=== PATIENT | female | born 1990 | race Caucasian/White ===

== ENCOUNTER 2016-12-31 05:25 | Inpatient (IN) | payer OTHER ==
[~2016-12-31] VITALS: Ht 167.6 cm; Wt 87.1 kg
[2016-12-31] VITALS (90 sets, daily range): BP systolic 87–120; BP diastolic 48–88; PULSE 71–190; RESP 17–20; TEMP 98–98.8
[2016-12-31] MEDS: LACTATED RINGER'S 1000 ML INJ 1,000 ML IV SCH ×2 (06:15→14:23)
[2016-12-31 07:44] LABS: AUTOMATED NEUTROPHIL # 8.4 TH/MM3 (1.8-7.7); BASOPHIL % 0.3 % (0.0-2.0); EOSINOPHIL % 0.5 % (0.0-4.0); HEMATOCRIT 36.3 % (35.0-46.0); HEMO FLAGS DIFF FINAL; LYMPH % 12.2 % (9.0-44.0); LYMPHOCYTE # 1.3 TH/MM3 (1.0-4.8); MEAN CELL VOLUME 81.8 FL (80.0-100.0); MEAN CORPUSCULAR HEMOGLOBIN 28.1 PG (27.0-34.0); MEAN CORPUSCULAR HGB CONC 34.4 % (32.0-36.0); MONO % 7.1 % (0.0-8.0); NEUT % 79.9 % (16.0-70.0); PLATELET COUNT 185 TH/MM3 (150-450); RED BLOOD COUNT 4.44 MIL/MM3 (4.00-5.30); RED CELL DISTRIBUTION WIDTH 14.4 % (11.6-17.2); WHITE BLOOD COUNT 10.5 TH/MM3 (4.0-11.0)
[2016-12-31] MEDS ORDERED: LACTATED RINGER'S 1000 ML INJ 1,000 ML IV PRN (07:50)
[2016-12-31] MEDS ORDERED: LIDOCAINE HCL 1% 50 ML VIAL INFIL PRN (08:00)
[2016-12-31] MEDS ORDERED: OXYTOCIN 30 UNITS-500ML PREMIX 500 ML IV ONE (08:00)
[2016-12-31] MEDS ORDERED: CITRIC ACID-SODIUM CITRATE LIQ 30 ML UDC PO SCH (08:00)
[2016-12-31] MEDS ORDERED: LIDOCAINE HCL 1% 50 ML VIAL I-DERMAL PRN (08:00)
[2016-12-31] MEDS ORDERED: SODIUM CHLORID 0.9% 500 ML INJ 500 ML IV PRN (08:00)
[2016-12-31] MEDS ORDERED: MINERAL OIL 10 ML VIAL TOPICAL PRN (08:00)
[2016-12-31] MEDS ORDERED: SODIUM CHLOR 0.9% 1000 ML INJ 1,000 ML IV PRN (08:10)
--- NOTE | 2016-12-31 08:10 | PD ---
HPI Chief Complaint rom at 0245 Date Seen: Dec 31, 2016 Time Seen: 06:00 Travel History International Travel<30 Days: No Contact w/Intl Traveler<30Days: No Known Affected Area: No History of Present Illness HPI 26yo G at [id number], with rom at 0245. Some contractions. Good movement , no discharge or bleeding Para: 0 : 1 History Past Medical History Medical History: Denies Significant Hx Past Surgical History Surgical History: No Previous Surgery Family History Family History: Negative Social History Alcohol Use: No Tobacco Use: No Substance Abuse: No Allergies-Medications (Allergen,Severity, Reaction): Coded Allergies: No Known Allergies (Unverified , 12/31/16) Review of Systems Except as stated in HPI: all other systems reviewed are Neg Physical Exam Narrative GENERAL: Well-nourished, well-developed patient. SKIN: Warm and dry. HEAD: Normocephalic and atraumatic. EYES: No scleral icterus. No injection or drainage. ENT: No nasal drainage noted. Mucous membranes pink. Airway patent. NECK: Supple, trachea midline. No JVD. CARDIOVASCULAR: Regular rate and rhythm without murmurs, gallops, or rubs. RESPIRATORY: Breath sounds equal bilaterally. No accessory muscle use. BREASTS: Bilateral exam showed no masses , no retractions, no nipple discharge. ABDOMEN/GI: Abdomen soft, non-tender, bowel sounds present, no rebound, no guarding Gravid to [-] weeks size Fundal Height: [40-] GENITOURINARY: Exam per nurse External Genitalia: intact and normal in appearance BUS glands: [-nl] Cervix: [1-] Dilatation: [1] Effacement: [-50] Station: [-2] Presentation: [-vertex] Membranes: [ruptured, thin meconium] Uterine Contractions: [-] FHT's: Category: [-1] Baseline: [140-] Reactive: [mod-] Variability: [mod-] Decels: [absent-] EXTREMITIES: No cyanosis or edema. BACK: Nontender without obvious deformity. No CVA tenderness. NEUROLOGICAL: Awake and alert. Motor and sensory grossly within normal limits. Five out of 5 muscle strength in all muscle groups. Normal speech. Data Data Orders Ob (2e) Additional Admit Info (12/31/16 06:32) Complete Blood Count With Diff (12/31/16 07:32) Hold Clot (12/31/16 07:32) Abo/Rh Blood Type (12/31/16 07:32) Urinalysis - C+S If Indicated (12/31/16 07:32) Specimen To Be Collected PRN (12/31/16 07:32) Admit To Inpatient (12/31/16 ) Vital Signs (Adult) .Per protocol (12/31/16 07:50) Heart (12/31/16 07:50) Amnioinfusion (12/31/16 07:50) Urinary Catheter Management .ONCE (12/31/16 07:50) Lactated Ringer's 1000 Ml Inj (Lr 1000 M (12/31/16 07:50) Lactated Ringer's 1000 Ml Inj (Lr 1000 M (12/31/16 07:50) Sodium Chlorid 0.9% 500 Ml Inj (Ns 500 M (12/31/16 08:00) Sodium Chlor 0.9% 1000 Ml Inj (Ns 1000 M (12/31/16 08:10) Lidocaine 1% Inj (50 Ml) (Xylocaine 1% I (12/31/16 08:00) Citric Acid-Sodium Citrate Liq (Bicitra (12/31/16 08:00) Fentanyl Inj (Fentanyl Inj) (12/31/16 08:00) Fentanyl Inj (Fentanyl Inj) (12/31/16 08:00) Resp Oxygen Non Rebreathe Mask (12/31/16 ) ^ Epidural / Intrathecal Infus (12/31/16 07:50) Oxytocin 30 Units-500ml Premix (Pitocin (12/31/16 08:00) Lidocaine 1% Inj (50 Ml) (Xylocaine 1% I (12/31/16 08:00) Light Mineral Oil (Muri-Lube Oil) (12/31/16 08:00) Inpatient Certification (12/31/16 ) Labs Laboratory Tests Test 12/31/16 06:19 White Blood Count 10.5 Red Blood Count 4.44 Hemoglobin 12.5 Hematocrit 36.3 Mean Corpuscular Volume 81.8 Mean Corpuscular Hemoglobin 28.1 Mean Corpuscular Hemoglobin 34.4 Concent Red Cell Distribution Width 14.4 Platelet Count 185 Mean Platelet Volume 9.1 Neutrophils (%) (Auto) 79.9 Lymphocytes (%) (Auto) 12.2 Monocytes (%) (Auto) 7.1 Eosinophils (%) (Auto) 0.5 Basophils (%) (Auto) 0.3 Neutrophils # (Auto) 8.4 Lymphocytes # (Auto) 1.3 Monocytes # (Auto) 0.7 Eosinophils # (Auto) 0.0 Basophils # (Auto) 0.0 CBC Comment DIFF FINAL Differential Comment MDM Plan 39-40 weeks gestation with spontaneous rupture of membranes GBS negative thin meconium Admit for labor Diagnosis Diagnosis: Primary Impression: Rupture of amniotic sac under 24 hours before onset of labor Additional Impressions: Meconium staining 39 weeks gestation of Eleanor Lyman MD Dec 31, 2016 08:10
[2016-12-31 08:29] LABS: BACTERIA, URINE FEW /hpf; BLOOD, URINE SMALL (NEG); COMMENT (UR) CULT NOT INDICATED; CULTURE IF INDICATED CULT NOT INDICATED; GLUCOSE,URINE NEG (NEG); KETONE, URINE NEG (NEG); MUCUS URINE FEW /lpf (OCC); NITRITE,URINE NEG (NEG); PH, URINE 6.5 (5.0-8.5); SQUAMOUS EPITHELIAL CELL URINE 7 /hpf (0-5); URINE COLOR YELLOW (YELLW/STRAW)
[2016-12-31] MEDS ORDERED: ONDANSETRON HCL 4 MG/2 ML VIAL IV PUSH PRN (08:45)
[2016-12-31] MEDS ORDERED: OXYTOCIN 30 UNITS-500ML PREMIX 500 ML IV SCH (12:30)
--- NOTE | 2016-12-31 12:30 | PD.LABORPN ---
Subjective Subjective Pt reports ctxs are getting stronger Objective Vital Signs Vital Signs Date Time Temp Pulse Resp B/P Pulse Ox O2 Delivery O2 Flow Rate FiO2 12/31/16 12:01 89 110/68 12/31/16 11:15 98.0 12/31/16 11:15 18 12/31/16 11:00 76 104/66 12/31/16 10:00 91 100/66 12/31/16 09:00 82 107/68 12/31/16 08:56 98.1 18 12/31/16 08:56 92 109/69 12/31/16 08:02 12/31/16 08:02 83 111/72 12/31/16 08:00 97 12/31/16 08:00 111/72 12/31/16 08:00 17 Objective Pelvic Exam: Cervix: ] Dilatation: 4 Effacement: 70 Station: -2 Presentation: v Membranes: srom and arom of small forebag Uterine Contractions: q 3-5 min FHT's: Category: [-] Baseline: 140 Reactive: reactive Variability: [-] Decels: [-] Assessment/Plan Assessment and Plan 26 yo wf G1 at 39+ wks in labor with SROM and cervical progression 1. will start some augmentation 2. pain management with epidural prn 3. expectant mngmt Angela Berger MD Dec 31, 2016 12:30
[2016-12-31] MEDS ORDERED: fentaNYL 2MCG-BUPIV 0.125% INJ 100 ML ONE (15:53)
[2016-12-31] MEDS ORDERED: BUPIVACAINE HCL PF 0.25% 10 ML VIAL ONE (15:55)
[2016-12-31] MEDS ORDERED: ePHEDrine/NS 25 MG/5 ML SYR ONE (15:56)
[2016-12-31] MEDS ORDERED: DO NOT ADMINISTER ANTICOAGULANTS PRN (17:30)
[2016-12-31] MEDS ORDERED: ePHEDrine/NS 25 MG/5 ML SYR IV PRN (17:30)
[2016-12-31] MEDS ORDERED: NO SYSTEM NARCOTICS PRN (17:30)
[2016-12-31] MEDS ORDERED: fentaNYL 2MCG-BUPIV 0.125% 100 ML EPIDURAL SCH (17:30)
--- NOTE | 2016-12-31 21:56 | PD.LABORPN ---
Subjective Subjective pt c/o pelvic pressure Objective Vital Signs Vital Signs Date Time Temp Pulse Resp B/P Pulse Ox O2 Delivery O2 Flow Rate FiO2 12/31/16 21:42 98.5 12/31/16 21:30 113/70 12/31/16 21:15 20 12/31/16 21:15 91 117/57 12/31/16 21:00 81 116/67 12/31/16 20:45 18 12/31/16 20:45 92 116/64 12/31/16 20:30 87 12/31/16 20:30 111/72 12/31/16 20:15 88 114/60 12/31/16 20:01 18 12/31/16 20:00 78 112/66 12/31/16 19:45 75 105/58 12/31/16 19:30 98.8 12/31/16 19:30 88 99/66 12/31/16 19:15 18 12/31/16 19:15 88 109/66 12/31/16 19:05 85 12/31/16 19:04 104/55 12/31/16 18:55 85 12/31/16 18:50 89 12/31/16 18:45 85 12/31/16 18:45 82 90/57 12/31/16 18:40 98 12/31/16 18:35 95 12/31/16 18:30 83 96/52 12/31/16 18:30 81 12/31/16 18:20 113 12/31/16 18:16 117 99/52 12/31/16 18:15 83 12/31/16 18:14 82 95/50 12/31/16 18:11 77 91/49 12/31/16 18:10 78 12/31/16 18:10 79 12/31/16 18:07 79 95/55 12/31/16 18:01 81 87/67 12/31/16 18:00 74 12/31/16 17:55 91 12/31/16 17:50 78 12/31/16 17:45 75 12/31/16 17:45 99 113/59 12/31/16 17:40 92 12/31/16 17:35 71 12/31/16 17:31 82 109/65 12/31/16 17:30 77 12/31/16 17:25 78 12/31/16 17:20 83 12/31/16 17:15 76 109/71 12/31/16 17:15 77 12/31/16 17:10 86 12/31/16 17:05 95 12/31/16 17:00 151 12/31/16 17:00 87 105/50 12/31/16 16:55 78 12/31/16 16:50 84 12/31/16 16:46 79 106/60 12/31/16 16:45 90 99/68 12/31/16 16:45 99 12/31/16 16:42 110 104/85 12/31/16 16:40 94 12/31/16 16:40 119 109/55 12/31/16 16:36 108 111/68 12/31/16 16:35 81 12/31/16 16:33 81 116/55 12/31/16 16:30 96 108/55 12/31/16 16:30 113 12/31/16 16:28 108 89/61 12/31/16 16:25 102 12/31/16 16:24 111 118/54 12/31/16 16:21 96 120/66 12/31/16 16:20 101 12/31/16 16:18 89 114/68 12/31/16 16:16 190 111/87 12/31/16 16:15 97 12/31/16 16:13 90 117/72 12/31/16 16:10 94 12/31/16 16:05 108 12/31/16 16:00 91 12/31/16 16:00 92 117/77 12/31/16 15:30 95 100/69 12/31/16 15:01 90 116/77 12/31/16 14:30 91 117/80 12/31/16 14:12 98.2 12/31/16 14:00 82 104/60 Objective Pelvic Exam: Cervix: [-] Dilatation: [7] Effacement: [90] Station: [-1-2] Presentation: [vtx] Membranes: [ruptured] Uterine Contractions: [q2-3] FHT's: Category: [1-2] Baseline: [140s] Reactive: [+] Variability: [-] Decels: [some variables] Assessment/Plan Problem List: (1) 39 weeks gestation of Plan: cont pit, amnioinfusion Delia Goode MD Dec 31, 2016 21:56
[2017-01-01] VITALS (11 sets, daily range): BP systolic 89–112; BP diastolic 50–84; PULSE 84–106; RESP 16–20; TEMP 98–98.9
--- NOTE | 2017-01-01 00:47 | PD.OB.DELI ---
Delivery Date: Dec 31, 2016 Anesthesia: Epidural, Lidocaine local to perineum Episiotomy: None Vaginal Delivery: Normal Presentation: Occiput anterior Nuchal Cord: None Delayed cord clamping (45 sec): No : Male, Single One Minute : 4 Five Minute : 8 Weight: 7-5 Placenta: Spontaneous delivery, Intact, 3 vessel cord Laceration: Perineal laceration, 2 deg (repaired with 2-0 chromic suture in a running fashion) Additional Information right periurethral laceration repaired with 3-0 chromic in a running fashion Delia Goode MD Jan 01, 2017 00:47
[2017-01-01] MEDS ORDERED: oxyCODONE/ACETAMINOPHEN 5 MG/325 MG TAB PO PRN (01:00)
[2017-01-01] MEDS ORDERED: ALUMINUM/MAGNESIUM/SIMETH 30 ML CUP PO PRN (01:00)
[2017-01-01] MEDS ORDERED: ACETAMINOPHEN 325 MG TAB PO PRN (01:00)
[2017-01-01] MEDS ORDERED: OXYTOCIN 10 UNIT/ML AMP XX PRN (01:00)
[2017-01-01] MEDS ORDERED: WITCH HAZEL 50%/GLYCERIN 12.5% 40 PAD JAR TOPICAL PRN (01:00)
[2017-01-01] MEDS ORDERED: SODIUM CHLORIDE 0.9% FLUSH 10 ML FLUSH IV FLUSH PRN (01:00)
[2017-01-01] MEDS ORDERED: ONDANSETRON ODT 4 MG TAB PO PRN (01:00)
[2017-01-01] MEDS ORDERED: BENZOCAINE 20% TOPICAL SPRAY 60 ML CAN TOPICAL PRN (01:00)
[2017-01-01] MEDS ORDERED: OXYTOCIN 30 UNITS-500ML PREMIX 500 ML IV ONE (01:00)
[2017-01-01] MEDS ORDERED: ZOLPIDEM TARTRATE 5 MG TAB PO PRN (01:00)
[2017-01-01] MEDS ORDERED: DOCUSATE SODIUM 50 MG/SENNA 8.6 MG TAB PO PRN (01:00)
[2017-01-01] MEDS: IBUPROFEN 600 MG TAB PO PRN ×3 (02:43→18:11)
[2017-01-01] MEDS ORDERED: SODIUM CHLORIDE 0.9% FLUSH 10 ML FLUSH IV FLUSH SCH (09:00)
--- NOTE | 2017-01-01 11:19 | HHI.OB ---
Subjective Post Day: 1 Remarks pain controlled, mod lochia, donald po, +void/flatus Objective Vitals/I&O Vital Signs Date Time Temp Pulse Resp B/P Pulse Ox O2 Delivery O2 Flow Rate FiO2 01/01/17 09:00 98.0 01/01/17 09:00 86 16 97/62 01/01/17 02:30 98.3 87 20 01/01/17 02:30 108/61 01/01/17 01:31 92 01/01/17 01:31 94/50 01/01/17 01:15 18 01/01/17 01:15 91 01/01/17 01:15 107/63 01/01/17 01:00 92/71 01/01/17 01:00 18 01/01/17 01:00 95 01/01/17 00:45 98.9 01/01/17 00:45 106 20 107/84 01/01/17 00:30 96 01/01/17 00:30 104/61 01/01/17 00:15 106 01/01/17 00:15 103/55 01/01/17 00:05 20 01/01/17 00:00 101 112/69 12/31/16 23:16 92/48 12/31/16 23:00 114 115/75 12/31/16 22:46 97 114/75 12/31/16 22:45 20 12/31/16 22:31 107/82 12/31/16 22:19 95 117/68 12/31/16 22:07 20 12/31/16 22:01 104/88 12/31/16 21:46 102 99/82 12/31/16 21:42 98.5 12/31/16 21:30 113/70 12/31/16 21:15 20 12/31/16 21:15 91 117/57 12/31/16 21:00 81 116/67 12/31/16 20:45 18 12/31/16 20:45 92 116/64 12/31/16 20:30 87 12/31/16 20:30 111/72 12/31/16 20:15 88 114/60 12/31/16 20:01 18 12/31/16 20:00 78 112/66 12/31/16 19:45 75 105/58 12/31/16 19:30 98.8 12/31/16 19:30 88 99/66 12/31/16 19:15 18 12/31/16 19:15 88 109/66 12/31/16 19:05 85 12/31/16 19:04 104/55 12/31/16 18:55 85 12/31/16 18:50 89 12/31/16 18:45 85 12/31/16 18:45 82 90/57 12/31/16 18:40 98 12/31/16 18:35 95 12/31/16 18:30 83 96/52 12/31/16 18:30 81 12/31/16 18:20 113 12/31/16 18:16 117 99/52 12/31/16 18:15 83 12/31/16 18:14 82 95/50 12/31/16 18:11 77 91/49 12/31/16 18:10 78 12/31/16 18:10 79 12/31/16 18:07 79 95/55 12/31/16 18:01 81 87/67 12/31/16 18:00 74 12/31/16 17:55 91 12/31/16 17:50 78 12/31/16 17:45 75 12/31/16 17:45 99 113/59 12/31/16 17:40 92 12/31/16 17:35 71 12/31/16 17:31 82 109/65 12/31/16 17:30 77 12/31/16 17:25 78 12/31/16 17:20 83 12/31/16 17:15 76 109/71 12/31/16 17:15 77 12/31/16 17:10 86 12/31/16 17:05 95 12/31/16 17:00 151 12/31/16 17:00 87 105/50 12/31/16 16:55 78 12/31/16 16:50 84 12/31/16 16:46 79 106/60 12/31/16 16:45 90 99/68 12/31/16 16:45 99 12/31/16 16:42 110 104/85 12/31/16 16:40 94 12/31/16 16:40 119 109/55 12/31/16 16:36 108 111/68 12/31/16 16:35 81 12/31/16 16:33 81 116/55 12/31/16 16:30 96 108/55 12/31/16 16:30 113 12/31/16 16:28 108 89/61 12/31/16 16:25 102 12/31/16 16:24 111 118/54 12/31/16 16:21 96 120/66 12/31/16 16:20 101 12/31/16 16:18 89 114/68 12/31/16 16:16 190 111/87 12/31/16 16:15 97 12/31/16 16:13 90 117/72 12/31/16 16:10 94 12/31/16 16:05 108 12/31/16 16:00 91 12/31/16 16:00 92 117/77 12/31/16 15:30 95 100/69 12/31/16 15:01 90 116/77 12/31/16 14:30 91 117/80 12/31/16 14:12 98.2 12/31/16 14:00 82 104/60 12/31/16 13:30 89 105/69 12/31/16 13:01 79 112/72 12/31/16 12:42 94 109/76 12/31/16 12:39 91 110/70 12/31/16 12:01 89 110/68 Objective Remarks GENERAL: Well-nourished, well-developed patient. CARDIOVASCULAR: Regular rate and rhythm without murmurs, gallops, or rubs. RESPIRATORY: Breath sounds equal bilaterally. No accessory muscle use. ABDOMEN/GI: Abdomen soft, non-tender. Fundus: Firm, non-tender at umbilicus. GENITOURINARY: Light to moderate bleeding. EXTREMITIES: No cyanosis or edema, non-tender, without signs of DVT. Medications and IVs Current Medications Medications (Trade) Dose Ordered Sig/Christina Route Start Time Stop Time Status Last Admin (NS Flush) 2 ml BID IV FLUSH 01/01/17 09:00 (NS Flush) 2 ml UNSCH PRN IV FLUSH 01/01/17 01:00 (Tylenol) 650 mg Q4H PRN PO 01/01/17 01:00 (Motrin) 600 mg Q6H PRN PO 01/01/17 01:00 01/01/17 09:30 (Percocet 5-325 Mg) 1 tab Q4H PRN PO 01/01/17 01:00 (Percocet 5-325 Mg) 2 tab Q4H PRN PO 01/01/17 01:00 (Americaine 20% Top Spr) 1 spray Q4H PRN TOPICAL 01/01/17 01:00 01/01/17 02:42 (Tucks Pads) 1 applic QID PRN TOPICAL 01/01/17 01:00 01/01/17 02:42 (Annette-Colace) 2 tab Q12H PRN PO 01/01/17 01:00 (Ambien) 5 mg HS PRN PO 01/01/17 01:00 (M-M-R Ii Inj) 0.5 ml ONCE ONCE SQ 01/01/17 16:00 01/01/17 16:01 (Boostrix Inj) 0.5 ml ONCE ONCE IM 01/01/17 16:00 01/01/17 16:01 (Mag-Al Plus Susp Liq) 15 ml Q8H PRN PO 01/01/17 01:00 (Zofran Odt) 4 mg Q6H PRN PO 01/01/17 01:00 Assessment/Plan Problem List: (1) Spontaneous vaginal delivery Plan: routine pp care Delia Goode MD Jan 01, 2017 11:19
[2017-01-01] MEDS ORDERED: IBUP-232 PO (11:21)
[2017-01-01] MEDS ORDERED: OXYC1TAB63 PO (11:21)
--- NOTE | 2017-01-01 11:22 | HHI.DCPOC ---
Discharge Care Plan Diagnosis: (1) Spontaneous vaginal delivery Your Health Problems Are: Vaginal delivery Report Symptoms to Your Doctor -Temperate above 100.5 degrees -Redness, of incision or excessive or foul smelling drainage -Unusual pain or calf pain -Increased vaginal bleeding -Painful or difficulty urinating -Feelings of extreme sadness or anxiety after 2 weeks Goals to Promote Your Health * To prevent worsening of your condition and complications * To maintain your health at the optimal level Directions to Meet Your Goals Take your medications as prescribed Follow your dietary instruction Follow activity as directed Ensure plenty of rest for recovery Drink fluids for hydration Keep your appointments as scheduled Take your immunizations and boosters as scheduled If your symptoms worsen call your PCP, if no PCP go to Urgent Care Center or Emergency Room Smoking is Dangerous to Your Health. Avoid second hand smoke Call the 24-hour crisis hotline for domestic abuse at Delia Goode MD Jan 01, 2017 11:22
[2017-01-01] MEDS ORDERED: DIPHTH/TETANUS/ACEL PERTUSSIS (BOOSTER) 0.5 ML VIAL/PFS IM ONE (16:00)
[2017-01-01] MEDS ORDERED: MEASLES, MUMPS, RUBELLA VACCINE 0.5 ML VIAL SQ ONE (16:00)
[2017-01-01] MEDS: oxyCODONE/ACETAMINOPHEN 5 MG/325 MG TAB PO PRN (19:56)
[2017-01-02] MEDS: IBUPROFEN 600 MG TAB PO PRN ×2 (00:20→13:08)
[2017-01-02] MEDS: oxyCODONE/ACETAMINOPHEN 5 MG/325 MG TAB PO PRN (00:20)
[2017-01-02 08:45] VITALS: BP 105/64; PULSE 79; RESP 18; TEMP 99.1
--- NOTE | 2017-01-02 08:46 | HHI.DS ---
Admission Date Dec 31, 2016 at 06:36 Discharge Date: Jan 02, 2017 Admitting Diagnosis SROM, LABOR AUGMENTATION Diagnosis: Delivery Date: Dec 31, 2016 Vaginal Delivery: Normal Infant: Male, Single Brief History 26yo G at [id number], with rom at 0245. Some contractions. Good movement , no discharge or bleeding Hospital Course pt was admitted with SROM and required labor augmentation. she had an . by PPD 2, she was voiding, passing gas with mod lochia and stable for d/c home Pt Condition on Discharge: Good Discharge Disposition: Discharge Home Discharge Instructions Diet Instructions: As Tolerated, No Restrictions Additional Diet Instructions: Drink at least 8 - 16 oz bottles of water a day Activities You Can Perform: Shower Only-No Bath, Sitz Bath Activities to Avoid: Lifting/Bending, Sexual Activity Additional Activity Instruc.: No driving until off pain medications Do not lift anything heavier than your baby in an infant carrier Delia Goode MD Jan 02, 2017 08:45
== END 2017-01-02 17:20 | disposition home or self-care (01) | DRG 775 ==
LOC: HOBED 05:25 → H2EB 06:36 → H1EA 01-01 02:14
PROVIDERS: ADMIT Obstetrics & Gynecology; ATTEND Obstetrics & Gynecology
PROC: 10E0XZZ Delivery of Products of Conception, External Approach (ICD-10-PCS; principal; 2016-12-31)
PROC: 0KQM0ZZ Repair Perineum Muscle, Open Approach (ICD-10-PCS; 2016-12-31)
DX: O77.0 Labor and delivery complicated by meconium in amniotic fluid (principal); O71.82 Other specified trauma to perineum and vulva; Z37.0 Single live birth; Z3A.39 39 weeks gestation of pregnancy
CPT/HCPCS: 59025; 81001; 85025; 86900; 86901; 88307; 90715; 99285; J2590; J3010; J7120